=== PATIENT | female | born 1965 | race Two or more races ===

== ENCOUNTER 2018-03-17 23:17 | Inpatient (IN) | payer OTHER ==
[~2018-03-17] VITALS: Ht 157.5 cm; Wt 82.1 kg
[2018-03-17 23:30] VITALS: BP 124/70
[2018-03-18] MEDS ORDERED: Z GUARD REMEDY 2 OZ OINT TP PRN (00:30)
[2018-03-18] MEDS ORDERED: ONDANSETRON HCL/PF 4 MG/2 ML VIAL IVP PRN (00:30)
[2018-03-18] MEDS ORDERED: CEFTRIAXONE 2 G in IV D5W 100 ML IV SCH (00:30)
[2018-03-18] MEDS ORDERED: ZOLPIDEM TARTRATE 5 MG TABLET PO PRN (00:30)
[2018-03-18] MEDS ORDERED: HYDROCODONE/APAP 5/325MG 1 EACH TABLET PO PRN (00:30)
[2018-03-18] MEDS ORDERED: ACETAMINOPHEN 325 MG TABLET PO PRN (00:30)
[2018-03-18] MEDS: IV NS 0.9% 1,000 ML IV PRN ×2 (01:07→14:20)
[2018-03-18 02:57] LABS: CHOLESTEROL 185 mg/dL (<200); HDL CHOLESTEROL 46 mg/dL (40-60); LDL 120 mg/dL (0-99); TRIGLYCERIDES 108 mg/dL (30-150)
[2018-03-18 08:00] VITALS: BP 122/76
[2018-03-18 08:02] VITALS: BP 122/76
[2018-03-18 16:00] VITALS: BP 128/75
[2018-03-18 20:00] VITALS: BP 123/84
[2018-03-18] MEDS: CEFTRIAXONE 2 G in IV D5W 100 ML IV SCH (22:17)
[2018-03-19] MEDS: IV NS 0.9% 1,000 ML IV PRN ×2 (06:38→21:17)
[2018-03-19 08:08] VITALS: BP 126/82
[2018-03-19 12:23] LABS: BASOPHILS % (AUTO) 0.3 % (0.0-2.0); EOSINOPHILS % (AUTO) 1.3 % (0.0-6.0); HEMATOCRIT 40 % (33-45); HEMOGLOBIN 13.9 g/dL (11.5-14.8); LYMPHOCYTES # (AUTO) 3.4 /CMM (0.8-4.8); LYMPHOCYTES % (AUTO) 38.1 % (20.0-44.0); MEAN CORPUSCULAR HEMOGLOBIN 34 PG (26.0-33.0); MEAN CORPUSCULAR HGB CONC 35 g/dl (31.0-36.0); MEAN CORPUSCULAR VOLUME 97 fL (82-100); MONOCYTES # (AUTO) 0.8 /CMM (0.1-1.30); NEUTROPHILS # (AUTO) 4.5 /CMM (1.8-8.9); NEUTROPHILS % (AUTO) 51.3 % (43.0-81.0); PLATELET COUNT (AUTO) 250 /CMM (150-450); RED BLOOD CELL COUNT(AUTO) 4.15 MIL/uL (4.0-5.2); WHITE BLOOD COUNT (AUTO) 8.8 K/uL (4.3-11.0)
[2018-03-19 12:28] LABS: CALCIUM, SERUM 8.8 mg/dL (8.5-10.1); CREATININE 0.6 mg/dL (0.6-1.3); MAGNESIUM 1.8 mg/dL (1.8-2.4); PHOSPHORUS 3.5 mg/dL (2.5-4.9); POTASSIUM 3.8 mmol/L (3.5-5.1)
[2018-03-19 16:23] VITALS: BP 122/80
[2018-03-19 20:00] VITALS: BP 123/76
[2018-03-19] MEDS: CEFTRIAXONE 2 G in IV D5W 100 ML IV SCH (22:58)
[2018-03-20 07:59] VITALS: BP 127/85
[2018-03-20 08:27] VITALS: BP 127/85
[2018-03-20] MEDS: IV NS 0.9% 1,000 ML IV PRN (10:10)
[2018-03-20 16:00] VITALS: BP 122/71
== END 2018-03-20 17:20 | disposition home or self-care (01) | DRG 720 ==
LOC: MEDSG2 23:17
PROVIDERS: ADMIT Nurse Practitioner Acute Care; ATTEND Nurse Practitioner Acute Care
DX: A41.9 Sepsis, unspecified organism (principal); N12 Tubulo-interstitial nephritis, not specified as acute or chronic; Z68.33 Body mass index [BMI] 33.0-33.9, adult; B96.20 Unspecified Escherichia coli [E. coli] as the cause of diseases classified elsewhere; E66.9 Obesity, unspecified; Z87.440 Personal history of urinary (tract) infections
CPT/HCPCS: 36415; 80048-TC; 80061-TC; 83605-TC; 83735-TC; 84100-TC; 84703-TC; 85025-TC; 87040-TC; 87081-TC; J0696; J7030; J7060; Z7610